=== PATIENT | female | born 1980 | race Caucasian/White ===

== ENCOUNTER 2016-12-06 23:48 | Emergency (ER) | payer MEDICAID ==
[~2016-12-06] VITALS: Ht 160 cm; Wt 87.0 kg
[~2016-12-06 23:48] MED LIST: AFAT40TA PO; AMOX-291 PO; APIX5TAB PO; ASPI-496 PO; BENADRYL; DEXA2TAB PO; FENT-58 TD; FENT1PAT77 HOMETD; FERR15DR18 PO; FOLI-17 PO; HYDR2TAB13 PO; IBUP-1222 PO; IBUP800T PO; LORA0.5T PO; LORA10TA3 PO; LORA2ORA PO; NYST1000 PO; OMEP-110 PO; OMEP1PAC PO; OMEP20TA62 PO; ONDA-40 PO; ONDA4SOL2 PO; OXYC-302 PO; OXYC10TA6 PO; OXYC20OR8 PO; OXYC20TA42 PO; OXYC80TA25 PO; PRED10TA PO; PRED5TAB PO; PROC10TA78 PO; PROP20TA PO; SUCR1ORA11 PO; TRAM100T13 PO; maalox/diphenh/lido/sucralfate PO
[2016-12-07] MEDS ORDERED: HYDROmorphone 1 MG/ML, 1ML ONE (00:29)
[2016-12-07] MEDS ORDERED: KETOROLAC 30 MG/1 ML ONE (00:29)
[2016-12-07] MEDS ORDERED: ONDANSETRON 2MG/ML, 2ML ONE (00:29)
[2016-12-07] MEDS ORDERED: HYDROmorphone 1 MG/ML, 1ML IVPush PRN (00:30)
[2016-12-07] MEDS ORDERED: SODIUM CHLORIDE 0.9% 1,000ML IVBOLUS ONE (00:30)
[2016-12-07] MEDS ORDERED: SODIUM CHLORIDE FLUSH 10ML SYR IVF ONE (00:30)
[2016-12-07] MEDS ORDERED: ONDANSETRON 2MG/ML, 2ML IVPush ONE (00:30)
[2016-12-07] MEDS ORDERED: KETOROLAC 30 MG/1 ML IVPush ONE (00:30)
[2016-12-07 00:45] LABS: HEMOGLOBIN 9.5 g/dL (11.7-16.4)
[2016-12-07 00:56] LABS: BLOOD UREA NITROGEN 11 mg/dL (7-18)
[2016-12-07 00:57] LABS: ASPARTATE AMINO TRANSFERASE 19 U/L (15-37)
[2016-12-07 01:03] LABS: IS PT STATUS REG ER OR PRE ER? YES
[2016-12-07 02:02] VITALS: BP 99/53
[2016-12-07] MEDS ORDERED: OMNIPAQUE 350 MG/ML, 100ML BOTTLE ONE (04:38)
== END 2016-12-07 02:15 | disposition home or self-care (01) ==
LOC: ED 23:50
DX: M94.0 Chondrocostal junction syndrome [Tietze] (principal); C78.00 Secondary malignant neoplasm of unspecified lung; Z79.01 Long term (current) use of anticoagulants; Z90.49 Acquired absence of other specified parts of digestive tract; Z90.89 Acquired absence of other organs
CPT/HCPCS: 36415; 71010; 71275; 80053; 83605; 84484; 85025; 87040; 93005; 96361; 96374; 96375; 99285; J1170; J1885; J2405; J7030; Q9967

== ENCOUNTER → 2017-01-11 | Outpatient (CLI) | payer MEDICAID | END | disposition home or self-care (01) | LOC: CFH 15:59 | PROVIDERS: ATTEND Internal Medicine Hematology & Oncology | DX: C34.31 Malignant neoplasm of lower lobe, right bronchus or lung (principal); M25.861 Other specified joint disorders, right knee ==

== ENCOUNTER → 2017-01-26 | Outpatient (CLI) | payer MEDICAID ==
[~2017-01-26] MED LIST changes: +CA C1TAB64 PO
== END | disposition home or self-care (01) ==
LOC: PETCFH 11:42
PROVIDERS: ATTEND Internal Medicine Hematology & Oncology
DX: C79.51 Secondary malignant neoplasm of bone (principal); C34.31 Malignant neoplasm of lower lobe, right bronchus or lung
CPT/HCPCS: 78306; A9503

== ENCOUNTER 2017-02-01 21:51 | Emergency (ER) | payer MEDICAID ==
[~2017-02-01] VITALS: Ht 160 cm; Wt 84.5 kg
[2017-02-01 22:01] VITALS: BP 130/72
[2017-02-01] MEDS ORDERED: ONDANSETRON 2MG/ML, 2ML ONE (22:48)
[2017-02-01] MEDS ORDERED: HYDROmorphone 1 MG/ML, 1ML ONE ×2 (22:49→22:55)
[2017-02-01] MEDS ORDERED: HYDROmorphone 1 MG/ML, 1ML IM ONE (23:00)
== END 2017-02-02 01:20 | disposition home or self-care (01) ==
LOC: ED 22:24
DX: M79.651 Pain in right thigh (principal); M25.561 Pain in right knee; K21.9 Gastro-esophageal reflux disease without esophagitis; Z90.49 Acquired absence of other specified parts of digestive tract; Z98.51 Tubal ligation status; Z88.6 Allergy status to analgesic agent; Z85.118 Personal history of other malignant neoplasm of bronchus and lung
CPT/HCPCS: 29505; 73552; 96372; 99284; J1170

== ENCOUNTER 2017-02-04 00:13 | Inpatient (IN) | payer MEDICAID ==
[2017-02-04] VITALS (9 sets, daily range): BP systolic 106–135; BP diastolic 71–79
[~2017-02-04] VITALS: Ht 160 cm; Wt 90.9 kg
[2017-02-04] MEDS ORDERED: SODIUM CHLORIDE FLUSH 10ML SYR IVF ONE (01:00)
[2017-02-04] MEDS ORDERED: VANCOMYCIN PER PHARMACY MC PRN ×2 (01:00→05:30)
[2017-02-04] MEDS ORDERED: ONDANSETRON 2MG/ML, 2ML IVPush ONE (01:00)
[2017-02-04] MEDS ORDERED: SODIUM CHLORIDE 0.9% 1,000ML IVBOLUS ONE (01:00)
[2017-02-04] MEDS ORDERED: VANCOMYCIN 1,700 MG in SODIUM CHLORIDE 0.9% 250 ML IV ONE (01:00)
[2017-02-04] MEDS ORDERED: AMPICILLIN/SULBACTAM 3 GM in SODIUM CHLORIDE 0.9% 100 ML IVPB ONE (01:00)
[2017-02-04] MEDS ORDERED: HYDROmorphone 1 MG/ML, 1ML ONE ×3 (01:07→01:56)
[2017-02-04] MEDS ORDERED: ONDANSETRON 2MG/ML, 2ML ONE (01:07)
[2017-02-04] MEDS: HYDROmorphone 1 MG/ML, 1ML IVPush PRN ×2 (01:16→01:34)
[2017-02-04] MEDS ORDERED: HYDROmorphone 1 MG/ML, 1ML IV ONE ×2 (01:30→04:30)
[2017-02-04 02:22] LABS: ASPARTATE AMINO TRANSFERASE 17 U/L (15-37); BLOOD UREA NITROGEN 9 mg/dL (7-18)
[2017-02-04] MEDS ORDERED: DIPHENHYDRAMINE 50 MG/ML, 1ML ONE (03:26)
[2017-02-04] MEDS ORDERED: DIPHENHYDRAMINE 50 MG/ML, 1ML IVPush ONE (04:00)
[2017-02-04] MEDS ORDERED: GUAIFENESIN/DM 200-20MG, 10ML UDC PO PRN (05:30)
[2017-02-04] MEDS ORDERED: VANCOMYCIN MC SCH (05:30)
[2017-02-04] MEDS ORDERED: PHARMACOKINETIC CONSULTATION MC ONE (05:30)
[2017-02-04] MEDS: AMPICILLIN/SULBACTAM 3 GM in SODIUM CHLORIDE 0.9% 100 ML IV SCH ×2 (05:30→15:13)
[2017-02-04] MEDS ORDERED: PHARMACOKINETIC MONITORING MC PRN (06:00)
[2017-02-04] MEDS ORDERED: OxyconTIN ER 10 MG TAB.ER ONE (06:04)
[2017-02-04] MEDS: PROPRANOLOL 20 MG TABLET PO SCH ×3 (06:11→22:30)
[2017-02-04] MEDS: HYDROmorphone 2 MG/ML, 1ML IVPush PRN ×8 (07:14→23:22)
[2017-02-04] MEDS: FAMOTIDINE 20 MG TABLET PO SCH ×2 (09:00→22:30)
[2017-02-04] MEDS: OxyconTIN ER 20 MG TAB.ER PO SCH ×2 (09:43→22:30)
[2017-02-04] MEDS: CALCIUM/VITAMIN D3 250-125 TABLET PO SCH ×2 (09:44→16:41)
[2017-02-04] MEDS: OMEPRAZOLE 20 MG CAPSULE.DR PO SCH (09:44)
[2017-02-04] MEDS: APIXABAN 5 MG TABLET PO SCH ×2 (09:44→20:26)
[2017-02-04] MEDS: FOLIC ACID 1 MG TABLET PO SCH (09:44)
[2017-02-04 12:37] LABS: HCG UR OBC PASS
[2017-02-04] MEDS ORDERED: VANCOMYCIN 1,700 MG in SODIUM CHLORIDE 0.9% 250 ML IV SCH (15:00)
[2017-02-04] MEDS: ONDANSETRON 2MG/ML, 2ML IVPush PRN (18:31)
[2017-02-04] MEDS ORDERED: GADOBUTROL 10 MMOL/10 ML PFS ONE (21:26)
[2017-02-04] MEDS: AFATINIB DIMALEATE 40 MG HOMEMEDPO SCH (22:00)
[2017-02-05] MEDS: AMPICILLIN/SULBACTAM 3 GM in SODIUM CHLORIDE 0.9% 100 ML IV SCH ×3 (00:39→17:09)
[2017-02-05] MEDS: ONDANSETRON 2MG/ML, 2ML IVPush PRN (00:44)
[2017-02-05] MEDS: HYDROmorphone 2 MG/ML, 1ML IVPush PRN ×11 (01:15→23:00)
[2017-02-05 03:17] VITALS: BP 112/66
[2017-02-05] MEDS: PROPRANOLOL 20 MG TABLET PO SCH ×3 (05:00→23:00)
[2017-02-05 05:26] LABS: BLOOD UREA NITROGEN 7 mg/dL (7-18)
[2017-02-05] MEDS: CALCIUM/VITAMIN D3 250-125 TABLET PO SCH ×2 (08:00→17:10)
[2017-02-05] MEDS ORDERED: OXYcodone 5 MG/5 ML ORAL.SOL UDC PO PRN (09:00)
[2017-02-05] MEDS ORDERED: HALOPERIDOL 5 MG/ML IV ONE (09:00)
[2017-02-05] MEDS: FAMOTIDINE 20 MG TABLET PO SCH ×2 (09:00→21:01)
[2017-02-05] MEDS ORDERED: ACETAMINOPHEN 325 MG TABLET PO PRN (09:00)
[2017-02-05] MEDS ORDERED: ALBUTEROL/IPRATROPIUM 2.5MG/0.5MG, 3 ML NPPB PRN (09:00)
[2017-02-05] MEDS: AFATINIB DIMALEATE 40 MG HOMEMEDPO SCH (09:00)
[2017-02-05] MEDS ORDERED: FENTANYL PF 100 MCG/2ML ONE ×3 (09:04→10:45)
[2017-02-05] MEDS ORDERED: MIDAZOLAM 1 MG/ML, 2ML ONE ×2 (09:05)
[2017-02-05] MEDS ORDERED: PROPOFOL 10 MG/ML, 20ML ONE (09:33)
[2017-02-05] MEDS ORDERED: DEXAMETHASONE 4 MG/ML, 1ML ONE (09:33)
[2017-02-05] MEDS ORDERED: ONDANSETRON 2MG/ML, 2ML ONE (09:33)
[2017-02-05] MEDS ORDERED: CEFAZOLIN 1,000 MG ONE (09:33)
[2017-02-05] MEDS ORDERED: SUCCINYLCHOLINE 20 MG/ML, 10ML ONE (09:33)
[2017-02-05] MEDS ORDERED: HYDROmorphone 1 MG/ML, 1ML ONE ×4 (09:47→11:25)
[2017-02-05] MEDS: FENTANYL PF 100 MCG/2ML IV PRN ×4 (10:32→11:10)
[2017-02-05] MEDS: HYDROmorphone 1 MG/ML, 1ML IV PRN ×6 (10:35→11:31)
[2017-02-05] MEDS ORDERED: HALOPERIDOL 5 MG/ML ONE (10:36)
[2017-02-05 11:51] VITALS: BP 145/76
[2017-02-05] MEDS: CEFAZOLIN PMX 2GM/50ML 50 ML IVPB SCH ×2 (13:29→21:08)
[2017-02-05] MEDS: OxyconTIN ER 20 MG TAB.ER PO SCH ×2 (13:31→21:01)
[2017-02-05] MEDS: FOLIC ACID 1 MG TABLET PO SCH (13:31)
[2017-02-05] MEDS: OMEPRAZOLE 20 MG CAPSULE.DR PO SCH (13:31)
[2017-02-05 14:30] VITALS: BP 145/83
[2017-02-05 19:22] VITALS: BP 141/72
[2017-02-06] MEDS: AMPICILLIN/SULBACTAM 3 GM in SODIUM CHLORIDE 0.9% 100 ML IV SCH ×3 (01:00→18:50)
[2017-02-06] MEDS: HYDROmorphone 2 MG/ML, 1ML IVPush PRN ×7 (01:00→14:57)
[2017-02-06 01:05] VITALS: BP 107/58
[2017-02-06] MEDS ORDERED: ACETAMINOPHEN 325 MG TABLET PO ONE (01:30)
[2017-02-06 04:49] LABS: BLOOD UREA NITROGEN 10 mg/dL (7-18)
[2017-02-06] MEDS: PROPRANOLOL 20 MG TABLET PO SCH ×3 (06:12→21:07)
[2017-02-06 08:30] VITALS: BP 131/71
[2017-02-06] MEDS: AFATINIB DIMALEATE 40 MG HOMEMEDPO SCH (08:46)
[2017-02-06] MEDS: CALCIUM/VITAMIN D3 250-125 TABLET PO SCH ×2 (08:47→18:50)
[2017-02-06] MEDS: OxyconTIN ER 20 MG TAB.ER PO SCH ×2 (08:47→21:05)
[2017-02-06] MEDS: FOLIC ACID 1 MG TABLET PO SCH (08:47)
[2017-02-06] MEDS: OMEPRAZOLE 20 MG CAPSULE.DR PO SCH (08:48)
[2017-02-06] MEDS: FAMOTIDINE 20 MG TABLET PO SCH ×2 (08:48→21:05)
[2017-02-06] MEDS ORDERED: POLYETHYLENE GLYCOL 17 GM PACKET PO ONE (12:30)
[2017-02-06] MEDS ORDERED: BISACODYL 5 MG EC TABLET PO PRN (12:30)
[2017-02-06 14:30] VITALS: BP 122/85
[2017-02-06] MEDS: HYDROmorphone PCA 30 MG/30 ML IV PRN (16:17)
[2017-02-06 20:41] VITALS: BP 123/74
[2017-02-06] MEDS: APIXABAN 5 MG TABLET PO SCH (21:05)
[2017-02-06] MEDS: DOCUSATE 100 MG CAPSULE PO SCH (21:05)
[2017-02-07] MEDS: AMPICILLIN/SULBACTAM 3 GM in SODIUM CHLORIDE 0.9% 100 ML IV SCH ×3 (00:44→17:12)
[2017-02-07 01:35] VITALS: BP 135/74
[2017-02-07] MEDS: PROPRANOLOL 20 MG TABLET PO SCH ×3 (06:04→22:16)
[2017-02-07 07:38] VITALS: BP 113/74
[2017-02-07] MEDS: FAMOTIDINE 20 MG TABLET PO SCH ×2 (09:00→21:18)
[2017-02-07] MEDS: DOCUSATE 100 MG CAPSULE PO SCH ×2 (09:14→21:18)
[2017-02-07] MEDS: CALCIUM/VITAMIN D3 250-125 TABLET PO SCH ×2 (09:15→17:16)
[2017-02-07] MEDS: FOLIC ACID 1 MG TABLET PO SCH (09:16)
[2017-02-07] MEDS: APIXABAN 5 MG TABLET PO SCH ×2 (09:16→21:18)
[2017-02-07] MEDS: OMEPRAZOLE 20 MG CAPSULE.DR PO SCH (09:17)
[2017-02-07] MEDS: ONDANSETRON 2MG/ML, 2ML IVPush PRN ×2 (09:18→21:19)
[2017-02-07] MEDS: OxyconTIN ER 20 MG TAB.ER PO SCH ×2 (09:31→21:18)
[2017-02-07 11:33] LABS: BLOOD UREA NITROGEN 10 mg/dL (7-18)
[2017-02-07 11:37] LABS: ASPARTATE AMINO TRANSFERASE 14 U/L (15-37)
[2017-02-07 14:00] VITALS: BP 137/72
[2017-02-07] MEDS: OXYcodone IR 5MG TABLET PO PRN ×2 (15:09→17:12)
[2017-02-07 19:12] VITALS: BP 124/83
[2017-02-07] MEDS: AFATINIB DIMALEATE 40 MG HOMEMEDPO SCH (21:00)
[2017-02-08] MEDS: AMPICILLIN/SULBACTAM 3 GM in SODIUM CHLORIDE 0.9% 100 ML IV SCH ×3 (00:20→17:09)
[2017-02-08 01:51] VITALS: BP 112/72
[2017-02-08 03:40] LABS: BLOOD UREA NITROGEN 7 mg/dL (7-18)
[2017-02-08] MEDS: PROPRANOLOL 20 MG TABLET PO SCH ×3 (05:54→22:00)
[2017-02-08 06:55] VITALS: BP 105/68
[2017-02-08] MEDS: OxyconTIN ER 20 MG TAB.ER PO SCH (08:43)
[2017-02-08] MEDS: FOLIC ACID 1 MG TABLET PO SCH (08:44)
[2017-02-08] MEDS: OMEPRAZOLE 20 MG CAPSULE.DR PO SCH (08:44)
[2017-02-08] MEDS: CALCIUM/VITAMIN D3 250-125 TABLET PO SCH ×2 (08:44→17:09)
[2017-02-08] MEDS: DOCUSATE 100 MG CAPSULE PO SCH ×2 (08:44→20:44)
[2017-02-08] MEDS: APIXABAN 5 MG TABLET PO SCH ×2 (08:44→20:44)
[2017-02-08] MEDS: FAMOTIDINE 20 MG TABLET PO SCH ×2 (08:45→20:44)
[2017-02-08] MEDS ORDERED: KETOROLAC 30 MG/1 ML IM STA (08:56)
[2017-02-08] MEDS: ONDANSETRON 2MG/ML, 2ML IVPush PRN ×3 (09:07→20:44)
[2017-02-08] MEDS: DIAZEPAM 10 MG TABLET PO PRN ×2 (09:39→22:00)
[2017-02-08 14:30] VITALS: BP 120/70
[2017-02-08] MEDS: HYDROmorphone PCA 30 MG/30 ML IV PRN (18:24)
[2017-02-08 19:11] VITALS: BP 125/76
[2017-02-08] MEDS: OxyconTIN ER 10 MG TAB.ER PO SCH (20:44)
[2017-02-08] MEDS: AFATINIB DIMALEATE 40 MG HOMEMEDPO SCH (20:47)
[2017-02-09] MEDS: AMPICILLIN/SULBACTAM 3 GM in SODIUM CHLORIDE 0.9% 100 ML IV SCH ×3 (00:07→15:54)
[2017-02-09 04:30] VITALS: BP 114/68
[2017-02-09] MEDS: PROPRANOLOL 20 MG TABLET PO SCH ×3 (06:24→22:09)
[2017-02-09 08:23] VITALS: BP 114/73
[2017-02-09] MEDS: OMEPRAZOLE 20 MG CAPSULE.DR PO SCH (08:31)
[2017-02-09] MEDS: FAMOTIDINE 20 MG TABLET PO SCH ×2 (08:31→20:15)
[2017-02-09] MEDS: FOLIC ACID 1 MG TABLET PO SCH (08:31)
[2017-02-09] MEDS: CALCIUM/VITAMIN D3 250-125 TABLET PO SCH ×2 (08:31→17:32)
[2017-02-09] MEDS: DOCUSATE 100 MG CAPSULE PO SCH ×2 (08:31→20:15)
[2017-02-09] MEDS: APIXABAN 5 MG TABLET PO SCH ×2 (08:32→20:15)
[2017-02-09] MEDS: OxyconTIN ER 10 MG TAB.ER PO SCH ×2 (08:32→20:22)
[2017-02-09] MEDS: ONDANSETRON 2MG/ML, 2ML IVPush PRN ×2 (08:40→17:39)
[2017-02-09] MEDS: DIAZEPAM 10 MG TABLET PO PRN ×3 (10:21→14:29)
[2017-02-09 15:23] VITALS: BP 112/69
[2017-02-09 20:51] VITALS: BP 112/70
[2017-02-09] MEDS: AFATINIB DIMALEATE 40 MG HOMEMEDPO SCH (21:00)
[2017-02-09] MEDS: DOXYCYCLINE 100MG TABLET PO SCH (22:09)
[2017-02-10] MEDS: ONDANSETRON 2MG/ML, 2ML IVPush PRN ×3 (00:06→21:06)
[2017-02-10] MEDS: AMPICILLIN/SULBACTAM 3 GM in SODIUM CHLORIDE 0.9% 100 ML IV SCH ×2 (00:14→08:31)
[2017-02-10 02:01] VITALS: BP 98/54
[2017-02-10] MEDS: DIAZEPAM 10 MG TABLET PO PRN ×3 (04:37→18:49)
[2017-02-10 05:43] VITALS: BP 115/63
[2017-02-10] MEDS: PROPRANOLOL 20 MG TABLET PO SCH ×3 (05:46→21:28)
[2017-02-10 07:00] VITALS: BP 104/57
[2017-02-10] MEDS ORDERED: OxyconTIN ER 20 MG TAB.ER ONE (08:17)
[2017-02-10] MEDS: AFATINIB DIMALEATE 40 MG HOMEMEDPO SCH (08:31)
[2017-02-10] MEDS: DOCUSATE 100 MG CAPSULE PO SCH ×2 (08:31→21:06)
[2017-02-10] MEDS: CALCIUM/VITAMIN D3 250-125 TABLET PO SCH ×2 (08:31→16:50)
[2017-02-10] MEDS: APIXABAN 5 MG TABLET PO SCH ×2 (08:31→21:06)
[2017-02-10] MEDS: DOXYCYCLINE 100MG TABLET PO SCH ×2 (08:32→21:06)
[2017-02-10] MEDS: OMEPRAZOLE 20 MG CAPSULE.DR PO SCH (08:32)
[2017-02-10] MEDS: FOLIC ACID 1 MG TABLET PO SCH (08:32)
[2017-02-10] MEDS: FAMOTIDINE 20 MG TABLET PO SCH (08:32)
[2017-02-10] MEDS: OxyconTIN ER 10 MG TAB.ER PO SCH ×2 (08:33→21:06)
[2017-02-10] MEDS ORDERED: HYDROmorphone 4MG TABLET PO PRN (11:00)
[2017-02-10] MEDS ORDERED: HYDROmorphone 2MG TABLET ONE (11:49)
[2017-02-10] MEDS: POLYETHYLENE GLYCOL 17 GM PACKET PO SCH (11:52)
[2017-02-10 12:18] VITALS: BP 102/67
[2017-02-10 14:40] VITALS: BP 107/69
[2017-02-10] MEDS: HYDROmorphone 2MG TABLET PO PRN ×3 (14:46→21:28)
[2017-02-10] MEDS: LACTULOSE 10 GM/15 ML UDC PO PRN (16:50)
[2017-02-10 21:01] VITALS: BP 122/77
[2017-02-11] MEDS ORDERED: BISACODYL 10 MG SUPP PR PRN (01:00)
[2017-02-11] MEDS: HYDROmorphone 2MG TABLET PO PRN ×5 (01:22→17:39)
[2017-02-11 03:23] VITALS: BP 126/78
[2017-02-11] MEDS: DIAZEPAM 10 MG TABLET PO PRN ×2 (05:07→13:35)
[2017-02-11] MEDS: ONDANSETRON 2MG/ML, 2ML IVPush PRN ×4 (05:22→23:28)
[2017-02-11] MEDS: PROPRANOLOL 20 MG TABLET PO SCH ×3 (06:25→22:00)
[2017-02-11 07:35] VITALS: BP 104/68
[2017-02-11] MEDS: FOLIC ACID 1 MG TABLET PO SCH (09:28)
[2017-02-11] MEDS: APIXABAN 5 MG TABLET PO SCH ×2 (09:28→20:01)
[2017-02-11] MEDS: DOCUSATE 100 MG CAPSULE PO SCH ×2 (09:28→20:01)
[2017-02-11] MEDS: POLYETHYLENE GLYCOL 17 GM PACKET PO SCH (09:28)
[2017-02-11] MEDS: CALCIUM/VITAMIN D3 250-125 TABLET PO SCH ×2 (09:28→16:56)
[2017-02-11] MEDS: OMEPRAZOLE 20 MG CAPSULE.DR PO SCH (09:29)
[2017-02-11] MEDS: OxyconTIN ER 10 MG TAB.ER PO SCH ×2 (09:29→20:01)
[2017-02-11] MEDS: DOXYCYCLINE 100MG TABLET PO SCH ×2 (09:29→20:01)
[2017-02-11 13:53] VITALS: BP 131/79
[2017-02-11 20:00] VITALS: BP 107/71
[2017-02-11] MEDS: HYDROmorphone PCA 30 MG/30 ML IV PRN (20:00)
[2017-02-11] MEDS: AFATINIB DIMALEATE 40 MG HOMEMEDPO SCH (21:00)
[2017-02-11] MEDS: DIAZEPAM 5 MG TABLET PO PRN (21:59)
[2017-02-12] VITALS (14 sets, daily range): BP systolic 96–116; BP diastolic 63–75
[2017-02-12] MEDS: HYDROmorphone 2MG TABLET PO PRN ×3 (03:24→15:03)
[2017-02-12 04:00] LABS: BLOOD UREA NITROGEN 7 mg/dL (7-18)
[2017-02-12] MEDS: PROPRANOLOL 20 MG TABLET PO SCH ×3 (05:58→22:21)
[2017-02-12] MEDS: ONDANSETRON 2MG/ML, 2ML IVPush PRN ×2 (07:56→22:23)
[2017-02-12] MEDS ORDERED: ACETAMINOPHEN 325 MG TABLET PO ONE (08:00)
[2017-02-12] MEDS ORDERED: DIPHENHYDRAMINE 50 MG/ML, 1ML IVPush ONE (08:00)
[2017-02-12] MEDS: CALCIUM/VITAMIN D3 250-125 TABLET PO SCH ×2 (08:06→17:46)
[2017-02-12] MEDS: FOLIC ACID 1 MG TABLET PO SCH (08:06)
[2017-02-12] MEDS: OMEPRAZOLE 20 MG CAPSULE.DR PO SCH (08:06)
[2017-02-12] MEDS: OxyconTIN ER 10 MG TAB.ER PO SCH ×2 (08:06→21:03)
[2017-02-12] MEDS: DOCUSATE 100 MG CAPSULE PO SCH ×2 (08:06→22:19)
[2017-02-12] MEDS: APIXABAN 5 MG TABLET PO SCH ×2 (08:06→22:20)
[2017-02-12] MEDS: DOXYCYCLINE 100MG TABLET PO SCH ×2 (08:07→22:20)
[2017-02-12] MEDS: POLYETHYLENE GLYCOL 17 GM PACKET PO SCH (09:00)
[2017-02-12 09:44] LABS: DIFF TOTAL CELLS COUNTED 100 CELL DIFF
[2017-02-12 10:51] LABS: ANISOCYTOSIS 1+; MICROCYTOSIS 2+; POIKILOCYTOSIS 1+
[2017-02-12 10:52] LABS: VERIFY COUNTS? YES
[2017-02-12] MEDS: DIAZEPAM 5 MG TABLET PO PRN (17:46)
[2017-02-13 01:30] VITALS: BP 107/69
[2017-02-13 05:11] VITALS: BP 114/75
[2017-02-13] MEDS: PROPRANOLOL 20 MG TABLET PO SCH ×3 (05:13→22:00)
[2017-02-13] MEDS: DIAZEPAM 5 MG TABLET PO PRN ×2 (05:13→18:15)
[2017-02-13 07:09] VITALS: BP 98/64
[2017-02-13] MEDS: DOXYCYCLINE 100MG TABLET PO SCH ×2 (12:16→22:46)
[2017-02-13] MEDS: CALCIUM/VITAMIN D3 250-125 TABLET PO SCH ×2 (12:16→17:56)
[2017-02-13] MEDS: FOLIC ACID 1 MG TABLET PO SCH (12:16)
[2017-02-13] MEDS: OMEPRAZOLE 20 MG CAPSULE.DR PO SCH (12:16)
[2017-02-13] MEDS: POLYETHYLENE GLYCOL 17 GM PACKET PO SCH (12:16)
[2017-02-13] MEDS: DOCUSATE 100 MG CAPSULE PO SCH ×2 (12:16→22:46)
[2017-02-13] MEDS: OxyconTIN ER 10 MG TAB.ER PO SCH ×2 (12:16→22:47)
[2017-02-13] MEDS: APIXABAN 5 MG TABLET PO SCH ×2 (12:16→22:46)
[2017-02-13] MEDS: ONDANSETRON 2MG/ML, 2ML IVPush PRN ×2 (12:23→22:46)
[2017-02-13 12:53] VITALS: BP 115/75
[2017-02-13] MEDS ORDERED: POTASSIUM CHLORIDE 40 MEQ in SODIUM CHLORIDE 0.9% 500 ML IV ONE (17:00)
[2017-02-13 21:30] VITALS: BP 107/72
[2017-02-14 03:05] VITALS: BP 107/72
[2017-02-14] MEDS: DIAZEPAM 5 MG TABLET PO PRN ×2 (03:26→16:33)
[2017-02-14 03:41] LABS: BLOOD UREA NITROGEN 8 mg/dL (7-18)
[2017-02-14] MEDS: PROPRANOLOL 20 MG TABLET PO SCH ×3 (05:24→22:00)
[2017-02-14] MEDS: CALCIUM/VITAMIN D3 250-125 TABLET PO SCH ×2 (09:18→17:15)
[2017-02-14] MEDS: FOLIC ACID 1 MG TABLET PO SCH (09:18)
[2017-02-14] MEDS: OMEPRAZOLE 20 MG CAPSULE.DR PO SCH (09:19)
[2017-02-14] MEDS: DOXYCYCLINE 100MG TABLET PO SCH ×2 (09:19→20:30)
[2017-02-14] MEDS: POLYETHYLENE GLYCOL 17 GM PACKET PO SCH (09:20)
[2017-02-14] MEDS: APIXABAN 5 MG TABLET PO SCH ×2 (09:20→20:30)
[2017-02-14] MEDS: DOCUSATE 100 MG CAPSULE PO SCH ×2 (09:22→20:30)
[2017-02-14] MEDS ORDERED: OxyconTIN ER 40 MG TAB.ER ONE (09:30)
[2017-02-14] MEDS: ONDANSETRON 2MG/ML, 2ML IVPush PRN ×2 (09:34→20:37)
[2017-02-14] MEDS: OxyconTIN ER 10 MG TAB.ER PO SCH ×2 (09:34→20:30)
[2017-02-14 14:36] VITALS: BP 137/64
[2017-02-14] MEDS: HYDROmorphone PCA 30 MG/30 ML IV PRN (15:06)
[2017-02-14 20:33] VITALS: BP 104/69
[2017-02-14 22:08] VITALS: BP 100/67
[2017-02-14] MEDS: HYDROmorphone 2MG TABLET PO PRN (22:12)
[2017-02-15] MEDS: DIAZEPAM 5 MG TABLET PO PRN (01:14)
[2017-02-15 01:25] VITALS: BP 108/72
[2017-02-15] MEDS: PROPRANOLOL 20 MG TABLET PO SCH ×2 (06:00→22:00)
[2017-02-15 06:47] LABS: BLOOD UREA NITROGEN 8 mg/dL (7-18)
[2017-02-15] MEDS: APIXABAN 5 MG TABLET PO SCH ×2 (09:00→20:30)
[2017-02-15] MEDS: DOXYCYCLINE 100MG TABLET PO SCH ×2 (09:00→20:30)
[2017-02-15] MEDS: POLYETHYLENE GLYCOL 17 GM PACKET PO SCH (09:00)
[2017-02-15] MEDS: DOCUSATE 100 MG CAPSULE PO SCH (09:00)
[2017-02-15] MEDS: OxyconTIN ER 10 MG TAB.ER PO SCH ×2 (09:00→20:30)
[2017-02-15] MEDS: OMEPRAZOLE 20 MG CAPSULE.DR PO SCH (09:30)
[2017-02-15] MEDS: FOLIC ACID 1 MG TABLET PO SCH (09:30)
[2017-02-15] MEDS: CALCIUM/VITAMIN D3 250-125 TABLET PO SCH (09:30)
[2017-02-16] MEDS: PROPRANOLOL 20 MG TABLET PO SCH ×4 (06:00→22:00)
[2017-02-16 06:35] VITALS: BP 112/72
[2017-02-16] MEDS: CALCIUM/VITAMIN D3 250-125 TABLET PO SCH ×3 (07:30→17:00)
[2017-02-16] MEDS: DOXYCYCLINE 100MG TABLET PO SCH ×2 (07:30→21:40)
[2017-02-16] MEDS: POLYETHYLENE GLYCOL 17 GM PACKET PO SCH (07:30)
[2017-02-16] MEDS: FOLIC ACID 1 MG TABLET PO SCH (07:30)
[2017-02-16] MEDS: OMEPRAZOLE 20 MG CAPSULE.DR PO SCH (07:30)
[2017-02-16] MEDS: DOCUSATE 100 MG CAPSULE PO SCH ×3 (09:15→21:39)
[2017-02-16] MEDS: APIXABAN 5 MG TABLET PO SCH ×2 (09:15→21:00)
[2017-02-16 15:31] VITALS: BP 99/65
[2017-02-16] MEDS: HYDROmorphone PCA 30 MG/30 ML IV PRN (19:43)
[2017-02-16 20:15] VITALS: BP 116/70
[2017-02-16] MEDS: ONDANSETRON 2MG/ML, 2ML IVPush PRN (20:16)
[2017-02-16] MEDS: HYDROmorphone 2MG TABLET PO PRN (20:31)
[2017-02-16] MEDS: OxyconTIN ER 10 MG TAB.ER PO SCH (21:39)
[2017-02-16] MEDS: DIAZEPAM 5 MG TABLET PO PRN (22:28)
[2017-02-16] MEDS: LACTULOSE 10 GM/15 ML UDC PO PRN (22:29)
[2017-02-17] MEDS: HYDROmorphone 2MG TABLET PO PRN ×4 (03:33→17:14)
[2017-02-17 04:33] VITALS: BP 111/62
[2017-02-17] MEDS: PROPRANOLOL 20 MG TABLET PO SCH ×3 (06:32→21:39)
[2017-02-17] MEDS: ONDANSETRON 2MG/ML, 2ML IVPush PRN ×3 (06:37→18:02)
[2017-02-17] MEDS: OxyconTIN ER 10 MG TAB.ER PO SCH ×2 (08:29→20:58)
[2017-02-17] MEDS: APIXABAN 5 MG TABLET PO SCH ×2 (08:30→20:58)
[2017-02-17] MEDS: FOLIC ACID 1 MG TABLET PO SCH (08:30)
[2017-02-17] MEDS: CALCIUM/VITAMIN D3 250-125 TABLET PO SCH ×2 (08:30→17:09)
[2017-02-17] MEDS: DOXYCYCLINE 100MG TABLET PO SCH ×2 (08:30→20:58)
[2017-02-17] MEDS: OMEPRAZOLE 20 MG CAPSULE.DR PO SCH (08:30)
[2017-02-17] MEDS: POLYETHYLENE GLYCOL 17 GM PACKET PO SCH (08:31)
[2017-02-17] MEDS: DOCUSATE 100 MG CAPSULE PO SCH ×2 (08:31→20:59)
[2017-02-17 10:02] VITALS: BP 106/69
[2017-02-17 13:02] VITALS: BP 97/67
[2017-02-17 19:51] VITALS: BP 126/77
[2017-02-17] MEDS: DIAZEPAM 5 MG TABLET PO PRN (21:39)
[2017-02-17] MEDS: LACTULOSE 10 GM/15 ML UDC PO PRN (21:39)
[2017-02-18] MEDS: ONDANSETRON 2MG/ML, 2ML IVPush PRN ×4 (00:15→22:44)
[2017-02-18] MEDS: HYDROmorphone 2MG TABLET PO PRN ×5 (01:04→22:40)
[2017-02-18 02:22] VITALS: BP 105/69
[2017-02-18] MEDS: PROPRANOLOL 20 MG TABLET PO SCH ×3 (05:26→21:10)
[2017-02-18] MEDS: OxyconTIN ER 10 MG TAB.ER PO SCH ×2 (08:33→21:07)
[2017-02-18] MEDS: POLYETHYLENE GLYCOL 17 GM PACKET PO SCH (08:34)
[2017-02-18] MEDS: OMEPRAZOLE 20 MG CAPSULE.DR PO SCH (08:35)
[2017-02-18] MEDS: DOXYCYCLINE 100MG TABLET PO SCH ×2 (08:35→21:06)
[2017-02-18] MEDS: FOLIC ACID 1 MG TABLET PO SCH (08:35)
[2017-02-18] MEDS: CALCIUM/VITAMIN D3 250-125 TABLET PO SCH ×2 (08:35→21:07)
[2017-02-18] MEDS: DOCUSATE 100 MG CAPSULE PO SCH ×2 (08:36→21:00)
[2017-02-18] MEDS: APIXABAN 5 MG TABLET PO SCH ×2 (08:37→21:06)
[2017-02-18 13:37] VITALS: BP 98/67
[2017-02-18 19:30] VITALS: BP 110/70
[2017-02-18] MEDS: LORazepam 2 MG/ML, 1ML IVPush PRN (21:34)
[2017-02-19 01:37] VITALS: BP 109/72
[2017-02-19] MEDS: DIAZEPAM 5 MG TABLET PO PRN (01:54)
[2017-02-19] MEDS: PROPRANOLOL 20 MG TABLET PO SCH ×3 (04:49→21:34)
[2017-02-19 07:55] VITALS: BP 114/75
[2017-02-19] MEDS: DOXYCYCLINE 100MG TABLET PO SCH ×2 (08:01→21:28)
[2017-02-19] MEDS: APIXABAN 5 MG TABLET PO SCH ×2 (08:01→21:28)
[2017-02-19] MEDS: DOCUSATE 100 MG CAPSULE PO SCH ×2 (08:01→21:28)
[2017-02-19] MEDS: OMEPRAZOLE 20 MG CAPSULE.DR PO SCH (08:01)
[2017-02-19] MEDS: OxyconTIN ER 10 MG TAB.ER PO SCH ×2 (08:01→21:28)
[2017-02-19] MEDS: FOLIC ACID 1 MG TABLET PO SCH (08:01)
[2017-02-19] MEDS: CALCIUM/VITAMIN D3 250-125 TABLET PO SCH ×2 (08:02→16:08)
[2017-02-19] MEDS: POLYETHYLENE GLYCOL 17 GM PACKET PO SCH (08:02)
[2017-02-19] MEDS: HYDROmorphone 2MG TABLET PO PRN ×4 (08:11→21:34)
[2017-02-19] MEDS: ONDANSETRON 2MG/ML, 2ML IVPush PRN ×3 (08:20→22:06)
[2017-02-19] MEDS: LORazepam 2 MG/ML, 1ML IVPush PRN ×3 (10:07→18:09)
[2017-02-19] MEDS ORDERED: DIAZEPAM 5 MG TABLET PO PRN (12:00)
[2017-02-19 15:20] VITALS: BP 99/67
[2017-02-19 18:57] VITALS: BP 111/71
[2017-02-20] MEDS: DIAZEPAM 5 MG TABLET PO PRN (01:06)
[2017-02-20 02:25] VITALS: BP 107/69
[2017-02-20] MEDS: PROPRANOLOL 20 MG TABLET PO SCH (04:33)
[2017-02-20] MEDS: LORazepam 2 MG/ML, 1ML IVPush PRN ×2 (06:25)
[2017-02-20] MEDS: HYDROmorphone 2MG TABLET PO PRN ×2 (06:25→08:01)
[2017-02-20 07:40] VITALS: BP 107/71
[2017-02-20] MEDS: OxyconTIN ER 10 MG TAB.ER PO SCH (07:51)
[2017-02-20] MEDS: APIXABAN 5 MG TABLET PO SCH (07:52)
[2017-02-20] MEDS: DOXYCYCLINE 100MG TABLET PO SCH (07:52)
[2017-02-20] MEDS: FOLIC ACID 1 MG TABLET PO SCH (07:52)
[2017-02-20] MEDS: OMEPRAZOLE 20 MG CAPSULE.DR PO SCH (07:53)
[2017-02-20] MEDS: DOCUSATE 100 MG CAPSULE PO SCH (07:53)
[2017-02-20] MEDS: POLYETHYLENE GLYCOL 17 GM PACKET PO SCH (07:53)
[2017-02-20] MEDS: CALCIUM/VITAMIN D3 250-125 TABLET PO SCH (07:53)
[2017-02-20] MEDS ORDERED: DIAZ5TAB4 PO (07:59)
[2017-02-20] MEDS ORDERED: POLY17PO5 PO (07:59)
[2017-02-20] MEDS ORDERED: ONDANSETRON ODT 4 MG PO PRN (08:00)
[2017-02-20] MEDS ORDERED: OXYC10TA32 PO (09:31)
== END 2017-02-20 12:30 | disposition home or self-care (01) | DRG 480 ==
LOC: ED 02:34 → EDIP 03:02 → 5SO 04:14 → 3NW 21:47
PROVIDERS: ADMIT Internal Medicine; ATTEND Internal Medicine
PROC: 0QHB36Z Insertion of Intramedullary Internal Fixation Device into Right Lower Femur, Percutaneous Approach (ICD-10-PCS; principal; 2017-02-05 10:30)
PROC: 30233N1 Transfusion of Nonautologous Red Blood Cells into Peripheral Vein, Percutaneous Approach (ICD-10-PCS; 2017-02-12)
DX: M84.551A Pathological fracture in neoplastic disease, right femur, initial encounter for fracture (principal); E43 Unspecified severe protein-calorie malnutrition; C79.51 Secondary malignant neoplasm of bone; N39.0 Urinary tract infection, site not specified; D68.69 Other thrombophilia; M86.9 Osteomyelitis, unspecified; E87.1 Hypo-osmolality and hyponatremia; Z66 Do not resuscitate; D50.9 Iron deficiency anemia, unspecified; E87.6 Hypokalemia; Z51.5 Encounter for palliative care; I10 Essential (primary) hypertension; G89.4 Chronic pain syndrome; Z86.711 Personal history of pulmonary embolism; Z90.49 Acquired absence of other specified parts of digestive tract; Z79.01 Long term (current) use of anticoagulants; Z79.891 Long term (current) use of opiate analgesic; Z79.899 Other long term (current) drug therapy; Z98.891 History of uterine scar from previous surgery; Z80.0 Family history of malignant neoplasm of digestive organs; Z80.3 Family history of malignant neoplasm of breast; Z88.5 Allergy status to narcotic agent; Z88.2 Allergy status to sulfonamides; Z68.35 Body mass index [BMI] 35.0-35.9, adult; Z85.118 Personal history of other malignant neoplasm of bronchus and lung; Z92.21 Personal history of antineoplastic chemotherapy
CPT/HCPCS: 36415; 71010; 71260; 74177; 76000; 80048; 80053; 81001; 81025; 83605; 84145; 85014; 85018; 85025; 85610; 85651; 85730; 86140; 86850; 86900; 86923; 87040; 87070; 87075; 87086; 87205; 88307; 88311; 93306; 96361; 96365; 96367; 96375; A9585; C1713; J0295; J0690; J1100; J1170; J2250; J2405; J2704; J3010; J3370; J3480; Q0162; Q9967; J0330; J1200; J1630; J2060; J7030; J7040; J7050; P9040

== ENCOUNTER 2017-02-22 22:16 | Inpatient (IN) | payer MEDICAID ==
[~2017-02-22] VITALS: Ht 160 cm; Wt 84.1 kg
[~2017-02-22 22:16] MED LIST changes: +DIAZ5TAB4 PO; +OXYC10TA32 PO; +POLY17PO5 PO
[2017-02-22] MEDS ORDERED: ONDANSETRON 2MG/ML, 2ML ONE ×2 (22:42→23:32)
[2017-02-22] MEDS ORDERED: FAMOTIDINE 20 MG/2 ML ONE (22:42)
[2017-02-22] MEDS ORDERED: HYDROmorphone 1 MG/ML, 1ML ONE ×2 (22:42→23:32)
[2017-02-22] MEDS: HYDROmorphone 1 MG/ML, 1ML IVPush PRN ×2 (22:54→23:45)
[2017-02-22] MEDS ORDERED: SODIUM CHLORIDE FLUSH 10ML SYR IVF ONE (23:00)
[2017-02-22] MEDS ORDERED: SODIUM CHLORIDE 0.9% 1,000ML IVBOLUS ONE (23:00)
[2017-02-22] MEDS ORDERED: ONDANSETRON 2MG/ML, 2ML IVPush ONE (23:00)
[2017-02-22] MEDS ORDERED: FAMOTIDINE 20 MG/2 ML IVP ONE (23:00)
[2017-02-22 23:25] LABS: ASPARTATE AMINO TRANSFERASE 14 U/L (15-37); BLOOD UREA NITROGEN 11 mg/dL (7-18)
[2017-02-23] MEDS ORDERED: OXYC30TA66 PO (02:23)
[2017-02-23] MEDS ORDERED: OXYC20TA42 PO (02:23)
[2017-02-23] MEDS ORDERED: APIXABAN/LOVENOX MC SCH (03:30)
[2017-02-23] MEDS ORDERED: TRAZODONE 50MG TABLET PO PRN (03:30)
[2017-02-23] MEDS ORDERED: hydrALAzine 20 MG/ML, 1ML IVPush PRN (03:30)
[2017-02-23] MEDS ORDERED: BISACODYL 10 MG SUPP PR PRN (03:30)
[2017-02-23] MEDS ORDERED: PROCHLORPERAZINE 5 MG/ML, 2ML IVPush PRN (03:30)
[2017-02-23] MEDS ORDERED: ENOXAPARIN 40 MG/0.4 ML SQ SCH (03:30)
[2017-02-23] MEDS ORDERED: POLYETHYLENE GLYCOL 17 GM PACKET PO PRN (03:30)
[2017-02-23] MEDS ORDERED: DOCUSATE 100 MG CAPSULE PO PRN (03:30)
[2017-02-23] MEDS: HYDROmorphone 2 MG/ML, 1ML IVPush PRN ×7 (04:19→23:34)
[2017-02-23] MEDS: ONDANSETRON 2MG/ML, 2ML IVPush PRN ×3 (04:19→19:55)
[2017-02-23] MEDS: SODIUM CHLORIDE 0.9% 1,000 ML IV SCH ×3 (04:22→10:24)
[2017-02-23 04:29] VITALS: BP 114/76
[2017-02-23] MEDS: PROPRANOLOL 20 MG TABLET PO SCH ×3 (05:56→22:00)
[2017-02-23 07:13] VITALS: BP 114/75
[2017-02-23] MEDS: FOLIC ACID 1 MG TABLET PO SCH (07:51)
[2017-02-23] MEDS: OMEPRAZOLE 20 MG CAPSULE.DR PO SCH (07:51)
[2017-02-23] MEDS: APIXABAN 5 MG TABLET PO SCH ×2 (07:51→20:27)
[2017-02-23] MEDS: POLYETHYLENE GLYCOL 17 GM PACKET PO SCH (07:52)
[2017-02-23] MEDS ORDERED: OXYCODONE HCL 30 MG PO SCH (09:00)
[2017-02-23] MEDS: OxyconTIN ER 20 MG TAB.ER PO SCH ×2 (10:21→20:27)
[2017-02-23] MEDS ORDERED: LACTULOSE 3.3 GM/5 ML ORAL.SOL RC ONE (11:30)
[2017-02-23 14:15] VITALS: BP 111/73
[2017-02-23] MEDS: SCOPOLAMINE PATCH, 1.5MG PATCH.TD72 TD SCH (14:24)
[2017-02-23] MEDS: METOCLOPRAMIDE 5 MG/ML, 2ML IVPush SCH ×2 (14:24→22:32)
[2017-02-23] MEDS: CEFTRIAXONE PMX 2GM/50ML 50 ML IV SCH (14:24)
[2017-02-23 19:54] VITALS: BP 113/74
[2017-02-23] MEDS: AFATINIB DIMALEATE 40 MG HOMEMEDPO SCH (20:02)
[2017-02-24] MEDS: SODIUM CHLORIDE 0.9% 1,000 ML IV SCH ×5 (00:28→22:44)
[2017-02-24 02:48] VITALS: BP 99/65
[2017-02-24] MEDS: HYDROmorphone 2 MG/ML, 1ML IVPush PRN ×7 (02:59→22:43)
[2017-02-24 05:07] LABS: ASPARTATE AMINO TRANSFERASE 14 U/L (15-37); BLOOD UREA NITROGEN 7 mg/dL (7-18)
[2017-02-24] MEDS: METOCLOPRAMIDE 5 MG/ML, 2ML IVPush SCH ×2 (06:03→15:46)
[2017-02-24] MEDS: PROPRANOLOL 20 MG TABLET PO SCH ×3 (06:03→21:08)
[2017-02-24] MEDS: AFATINIB DIMALEATE 40 MG HOMEMEDPO SCH (07:21)
[2017-02-24 07:45] VITALS: BP 113/75
[2017-02-24] MEDS: ONDANSETRON 2MG/ML, 2ML IVPush PRN ×2 (10:12→17:47)
[2017-02-24] MEDS: POLYETHYLENE GLYCOL 17 GM PACKET PO SCH (10:17)
[2017-02-24] MEDS: OxyconTIN ER 20 MG TAB.ER PO SCH (10:17)
[2017-02-24] MEDS: OMEPRAZOLE 20 MG CAPSULE.DR PO SCH (10:17)
[2017-02-24] MEDS: APIXABAN 5 MG TABLET PO SCH ×2 (10:17→21:08)
[2017-02-24] MEDS: FOLIC ACID 1 MG TABLET PO SCH (10:17)
[2017-02-24 13:47] VITALS: BP 107/72
[2017-02-24 18:10] VITALS: BP 110/71
[2017-02-24] MEDS: CEFTRIAXONE PMX 2GM/50ML 50 ML IV SCH (19:07)
[2017-02-24] MEDS ORDERED: OxyconTIN ER 10 MG TAB.ER PO SCH (21:00)
[2017-02-24] MEDS: OxyconTIN ER 15 MG TAB.ER PO SCH (21:09)
[2017-02-24] MEDS: METHYLNALTREXONE 12 MG/0.6 ML SQ SCH (22:00)
[2017-02-25] MEDS: METOCLOPRAMIDE 5 MG/ML, 2ML IVPush SCH ×4 (00:01→23:59)
[2017-02-25] MEDS: HYDROmorphone 2 MG/ML, 1ML IVPush PRN ×8 (01:35→23:06)
[2017-02-25 01:44] VITALS: BP 100/62
[2017-02-25] MEDS: SODIUM CHLORIDE 0.9% 1,000 ML IV SCH ×4 (04:32→20:09)
[2017-02-25] MEDS: ONDANSETRON 2MG/ML, 2ML IVPush PRN ×3 (04:32→19:16)
[2017-02-25 05:26] VITALS: BP 100/64
[2017-02-25] MEDS: PROPRANOLOL 20 MG TABLET PO SCH ×3 (05:27→23:00)
[2017-02-25] MEDS: APIXABAN 5 MG TABLET PO SCH ×2 (07:51→20:09)
[2017-02-25] MEDS: OxyconTIN ER 15 MG TAB.ER PO SCH ×2 (07:51→20:09)
[2017-02-25] MEDS: OMEPRAZOLE 20 MG CAPSULE.DR PO SCH (07:51)
[2017-02-25] MEDS: FOLIC ACID 1 MG TABLET PO SCH (07:51)
[2017-02-25] MEDS: POLYETHYLENE GLYCOL 17 GM PACKET PO SCH (07:52)
[2017-02-25 08:30] VITALS: BP 93/61
[2017-02-25] MEDS ORDERED: GOLYTELY 4,000ML ORAL.SOL PO ONE (10:30)
[2017-02-25] MEDS: CEFTRIAXONE PMX 1GM/50ML 50 ML IV SCH (11:04)
[2017-02-25 13:30] VITALS: BP 107/75
[2017-02-25] MEDS ORDERED: GOLYTELY 4,000ML ORAL.SOL ONE (15:38)
[2017-02-25 19:11] VITALS: BP 98/66
[2017-02-25] MEDS: CEFTRIAXONE PMX 2GM/50ML 50 ML IV SCH (19:16)
[2017-02-25 22:43] VITALS: BP 102/60
[2017-02-26] MEDS: HYDROmorphone 2 MG/ML, 1ML IVPush PRN ×4 (01:58→22:37)
[2017-02-26] MEDS: SODIUM CHLORIDE 0.9% 1,000 ML IV SCH ×4 (01:58→20:44)
[2017-02-26] MEDS: ONDANSETRON 2MG/ML, 2ML IVPush PRN ×4 (01:58→22:37)
[2017-02-26 02:04] VITALS: BP 101/64
[2017-02-26 06:02] LABS: BLOOD UREA NITROGEN 4 mg/dL (7-18)
[2017-02-26] MEDS: PROPRANOLOL 20 MG TABLET PO SCH ×3 (06:02→22:44)
[2017-02-26 06:36] VITALS: BP 104/70
[2017-02-26] MEDS: METOCLOPRAMIDE 5 MG/ML, 2ML IVPush SCH ×3 (08:06→23:52)
[2017-02-26] MEDS: APIXABAN 5 MG TABLET PO SCH ×2 (08:07→20:44)
[2017-02-26] MEDS: FOLIC ACID 1 MG TABLET PO SCH (08:07)
[2017-02-26] MEDS: POLYETHYLENE GLYCOL 17 GM PACKET PO SCH (08:07)
[2017-02-26] MEDS: OMEPRAZOLE 20 MG CAPSULE.DR PO SCH (08:17)
[2017-02-26] MEDS ORDERED: GOLYTELY 4,000ML ORAL.SOL PO ONE ×2 (08:30→13:00)
[2017-02-26] MEDS ORDERED: ALPR0.25 PO (08:35)
[2017-02-26] MEDS ORDERED: CEFD300C37 PO (08:35)
[2017-02-26] MEDS ORDERED: METO10TA82 PO (08:35)
[2017-02-26] MEDS ORDERED: SCOP1PAT TD (08:36)
[2017-02-26] MEDS ORDERED: HYDR2TAB13 PO (08:52)
[2017-02-26] MEDS: OxyconTIN ER 15 MG TAB.ER PO SCH ×2 (09:47→20:44)
[2017-02-26] MEDS: HYDROmorphone 2MG TABLET PO PRN ×2 (11:05→13:49)
[2017-02-26] MEDS: CEFTRIAXONE PMX 1GM/50ML 50 ML IV SCH (11:18)
[2017-02-26] MEDS: SCOPOLAMINE PATCH, 1.5MG PATCH.TD72 TD SCH (11:20)
[2017-02-26] MEDS: DIAZEPAM 5 MG TABLET PO PRN (12:44)
[2017-02-26 14:21] VITALS: BP 110/72
[2017-02-26] MEDS ORDERED: METHYLNALTREXONE 12 MG/0.6 ML SQ ONE ×2 (16:00)
[2017-02-26] MEDS ORDERED: KETOROLAC 30 MG/1 ML IM ONE (16:36)
[2017-02-26] MEDS ORDERED: KETOROLAC 30 MG/1 ML IVPush STA (16:57)
[2017-02-26] MEDS ORDERED: KETOROLAC 30 MG/1 ML IVPush ONE (17:22)
[2017-02-26 19:05] VITALS: BP 111/70
[2017-02-26] MEDS ORDERED: OMNIPAQUE 350 MG/ML, 100ML BOTTLE ONE (21:08)
[2017-02-26] MEDS ORDERED: KETOROLAC 30 MG/1 ML IM PRN (22:00)
[2017-02-26] MEDS: METHYLNALTREXONE 12 MG/0.6 ML SQ SCH (22:14)
[2017-02-26] MEDS: FENTANYL 50 MCG PATCH TD SCH (22:38)
[2017-02-26 22:43] VITALS: BP 110/73
[2017-02-27 01:56] VITALS: BP 104/70
[2017-02-27] MEDS: HYDROmorphone 2 MG/ML, 1ML IVPush PRN ×7 (03:01→23:16)
[2017-02-27] MEDS: SODIUM CHLORIDE 0.9% 1,000 ML IV SCH ×3 (03:01→22:44)
[2017-02-27 03:28] LABS: ASPARTATE AMINO TRANSFERASE 17 U/L (15-37); BLOOD UREA NITROGEN 4 mg/dL (7-18)
[2017-02-27] MEDS: PROPRANOLOL 20 MG TABLET PO SCH ×4 (06:00→22:42)
[2017-02-27 06:01] VITALS: BP 99/64
[2017-02-27] MEDS: METOCLOPRAMIDE 5 MG/ML, 2ML IVPush SCH ×3 (07:45→23:45)
[2017-02-27 08:48] VITALS: BP 102/69
[2017-02-27] MEDS: OMEPRAZOLE 20 MG CAPSULE.DR PO SCH (09:00)
[2017-02-27] MEDS: FOLIC ACID 1 MG TABLET PO SCH (09:00)
[2017-02-27] MEDS: APIXABAN 5 MG TABLET PO SCH ×2 (09:00→21:17)
[2017-02-27] MEDS: POLYETHYLENE GLYCOL 17 GM PACKET PO SCH (09:00)
[2017-02-27] MEDS: OxyconTIN ER 15 MG TAB.ER PO SCH ×2 (09:00→21:18)
[2017-02-27] MEDS ORDERED: DIAZEPAM 5 MG/ML, 2ML IV PRN (10:30)
[2017-02-27] MEDS ORDERED: BENZOCAINE AEROSOL SPRAY 20%, 60ML MM PRN (10:30)
[2017-02-27 10:51] VITALS: BP 111/70
[2017-02-27] MEDS ORDERED: DIAZEPAM 5 MG/ML, 10ML VIAL IVPush PRN (12:00)
[2017-02-27] MEDS: ONDANSETRON 2MG/ML, 2ML IVPush PRN ×2 (12:07→18:22)
[2017-02-27 13:58] VITALS: BP 117/77
[2017-02-27] MEDS: CEFTRIAXONE PMX 1GM/50ML 50 ML IV SCH (14:10)
[2017-02-27] MEDS: DIAZEPAM 5 MG TABLET PO PRN ×2 (16:18→21:31)
[2017-02-27 20:18] VITALS: BP 116/75
[2017-02-28] MEDS: ONDANSETRON 2MG/ML, 2ML IVPush PRN ×3 (01:06→18:19)
[2017-02-28] MEDS: HYDROmorphone 2 MG/ML, 1ML IVPush PRN ×7 (02:19→21:26)
[2017-02-28 05:41] VITALS: BP 96/62
[2017-02-28] MEDS: SODIUM CHLORIDE 0.9% 1,000 ML IV SCH ×3 (06:00→21:26)
[2017-02-28] MEDS: PROPRANOLOL 20 MG TABLET PO SCH ×3 (06:00→21:26)
[2017-02-28 07:18] VITALS: BP 106/67
[2017-02-28] MEDS: OxyconTIN ER 15 MG TAB.ER PO SCH ×2 (08:18→21:26)
[2017-02-28] MEDS: METOCLOPRAMIDE 5 MG/ML, 2ML IVPush SCH ×2 (08:18→16:23)
[2017-02-28] MEDS: POLYETHYLENE GLYCOL 17 GM PACKET PO SCH (08:19)
[2017-02-28] MEDS: APIXABAN 5 MG TABLET PO SCH ×2 (08:19→21:26)
[2017-02-28] MEDS: FOLIC ACID 1 MG TABLET PO SCH (08:19)
[2017-02-28] MEDS: OMEPRAZOLE 20 MG CAPSULE.DR PO SCH (08:20)
[2017-02-28] MEDS: CEFTRIAXONE PMX 1GM/50ML 50 ML IV SCH (10:43)
[2017-02-28] MEDS: DIAZEPAM 5 MG TABLET PO PRN (12:28)
[2017-02-28 14:22] VITALS: BP 106/62
[2017-02-28 19:40] VITALS: BP 114/75
[2017-02-28] MEDS: METHYLNALTREXONE 12 MG/0.6 ML SQ SCH (21:26)
[2017-03-01] MEDS: HYDROmorphone 2 MG/ML, 1ML IVPush PRN ×7 (00:26→23:30)
[2017-03-01] MEDS: METOCLOPRAMIDE 5 MG/ML, 2ML IVPush SCH ×4 (00:26→23:30)
[2017-03-01] MEDS: ONDANSETRON 2MG/ML, 2ML IVPush PRN ×3 (03:31→20:22)
[2017-03-01 03:45] VITALS: BP 97/60
[2017-03-01] MEDS: PROPRANOLOL 20 MG TABLET PO SCH ×3 (06:00→21:37)
[2017-03-01] MEDS: SODIUM CHLORIDE 0.9% 1,000 ML IV SCH ×3 (06:21→23:30)
[2017-03-01 08:14] VITALS: BP 100/67
[2017-03-01] MEDS: APIXABAN 5 MG TABLET PO SCH ×2 (10:13→21:30)
[2017-03-01] MEDS: OxyconTIN ER 15 MG TAB.ER PO SCH ×2 (10:13→21:30)
[2017-03-01] MEDS: OMEPRAZOLE 20 MG CAPSULE.DR PO SCH (10:13)
[2017-03-01] MEDS: FOLIC ACID 1 MG TABLET PO SCH (10:15)
[2017-03-01] MEDS: CEFTRIAXONE PMX 1GM/50ML 50 ML IV SCH (10:15)
[2017-03-01] MEDS: POLYETHYLENE GLYCOL 17 GM PACKET PO SCH (10:15)
[2017-03-01 15:17] VITALS: BP 112/72
[2017-03-01] MEDS: SCOPOLAMINE PATCH, 1.5MG PATCH.TD72 TD SCH (16:42)
[2017-03-01 20:16] VITALS: BP 108/70
[2017-03-01] MEDS: FENTANYL 50 MCG PATCH TD SCH (21:31)
[2017-03-01] MEDS: FENTANYL REMOVE PATCH NOTE XX SCH (21:31)
[2017-03-02] MEDS: ONDANSETRON 2MG/ML, 2ML IVPush PRN ×3 (04:00→17:57)
[2017-03-02] MEDS: HYDROmorphone 2 MG/ML, 1ML IVPush PRN ×6 (04:00→21:11)
[2017-03-02] MEDS: PROPRANOLOL 20 MG TABLET PO SCH ×3 (06:00→22:00)
[2017-03-02] MEDS: OMEPRAZOLE 20 MG CAPSULE.DR PO SCH (07:52)
[2017-03-02] MEDS: METOCLOPRAMIDE 5 MG/ML, 2ML IVPush SCH ×2 (07:52→16:13)
[2017-03-02] MEDS: POLYETHYLENE GLYCOL 17 GM PACKET PO SCH (07:53)
[2017-03-02] MEDS: APIXABAN 5 MG TABLET PO SCH ×2 (07:53→21:11)
[2017-03-02] MEDS: SODIUM CHLORIDE 0.9% 1,000 ML IV SCH ×2 (07:53→16:13)
[2017-03-02] MEDS: FOLIC ACID 1 MG TABLET PO SCH (07:53)
[2017-03-02 08:31] VITALS: BP 97/62
[2017-03-02] MEDS ORDERED: OxyconTIN ER 20 MG TAB.ER ONE (09:25)
[2017-03-02] MEDS ORDERED: OxyconTIN ER 10 MG TAB.ER ONE (09:25)
[2017-03-02] MEDS: OxyconTIN ER 15 MG TAB.ER PO SCH ×2 (09:28→21:11)
[2017-03-02] MEDS: CEFTRIAXONE PMX 1GM/50ML 50 ML IV SCH (10:26)
[2017-03-02] MEDS: FENTANYL REMOVE PATCH NOTE XX SCH (10:27)
[2017-03-02 13:43] VITALS: BP 108/73
[2017-03-02 19:22] VITALS: BP 120/77
[2017-03-02] MEDS: METHYLNALTREXONE 12 MG/0.6 ML SQ SCH (22:00)
[2017-03-03] MEDS: METOCLOPRAMIDE 5 MG/ML, 2ML IVPush SCH ×3 (00:09→16:31)
[2017-03-03] MEDS: HYDROmorphone 2 MG/ML, 1ML IVPush PRN ×6 (00:09→16:06)
[2017-03-03] MEDS: SODIUM CHLORIDE 0.9% 1,000 ML IV SCH ×2 (00:10→08:35)
[2017-03-03 03:30] VITALS: BP 106/70
[2017-03-03 05:54] LABS: BLOOD UREA NITROGEN 1 mg/dL (7-18)
[2017-03-03] MEDS: PROPRANOLOL 20 MG TABLET PO SCH ×2 (06:00→14:00)
[2017-03-03] MEDS: ONDANSETRON 2MG/ML, 2ML IVPush PRN ×2 (06:53→12:54)
[2017-03-03 06:59] VITALS: BP 103/66
[2017-03-03] MEDS: OxyconTIN ER 15 MG TAB.ER PO SCH (08:35)
[2017-03-03] MEDS: APIXABAN 5 MG TABLET PO SCH (08:35)
[2017-03-03] MEDS: FOLIC ACID 1 MG TABLET PO SCH (08:35)
[2017-03-03] MEDS: OMEPRAZOLE 20 MG CAPSULE.DR PO SCH (08:35)
[2017-03-03] MEDS: POLYETHYLENE GLYCOL 17 GM PACKET PO SCH (08:35)
[2017-03-03] MEDS: CEFTRIAXONE PMX 1GM/50ML 50 ML IV SCH (11:25)
[2017-03-03 12:31] VITALS: BP 104/70
[2017-03-03] MEDS ORDERED: POTA20TA14 PO (13:07)
[2017-03-03] MEDS ORDERED: ONDA4TAB7 PO (13:07)
[2017-03-03] MEDS ORDERED: SENN1TAB7 PO (13:15)
[2017-03-03] MEDS ORDERED: FERR324T8 PO (13:15)
== END 2017-03-03 18:30 | disposition home or self-care (01) | DRG 391 ==
LOC: ED 23:05 → EDIP 02-23 03:18 → 4WST 02-23 04:06 → 3NW 02-24 13:43
PROVIDERS: ADMIT Internal Medicine; ATTEND Family Medicine
DX: K59.03 Drug induced constipation (principal); E43 Unspecified severe protein-calorie malnutrition; C34.90 Malignant neoplasm of unspecified part of unspecified bronchus or lung; N39.0 Urinary tract infection, site not specified; C79.51 Secondary malignant neoplasm of bone; D68.69 Other thrombophilia; K31.84 Gastroparesis; T40.605A Adverse effect of unspecified narcotics, initial encounter; D50.9 Iron deficiency anemia, unspecified; I10 Essential (primary) hypertension; B96.20 Unspecified Escherichia coli [E. coli] as the cause of diseases classified elsewhere; E87.6 Hypokalemia; Z51.5 Encounter for palliative care; G89.4 Chronic pain syndrome; Z80.0 Family history of malignant neoplasm of digestive organs; Z86.711 Personal history of pulmonary embolism; Z68.32 Body mass index [BMI] 32.0-32.9, adult; Z80.3 Family history of malignant neoplasm of breast; Z88.2 Allergy status to sulfonamides
CPT/HCPCS: 36415; 71010; 74000; 74020; 74177; 80048; 80053; 81001; 83605; 83690; 83735; 84100; 85025; 87077; 87086; 87186; 93005; 96361; 96374; 96375; 96376; J0696; J1170; J1885; J2405; J3360; Q9967; J0780; J2765; J7030; S0028